=== PATIENT | male | born 1975 | race Caucasian/White ===

== ENCOUNTER 2020-10-01 15:50 | Outpatient (CLI) | payer OTHER, SELFPAY ==
--- NOTE | ~2020-10-01 | XR_ITS ---
XR chest 2V 10/01/2020 16:30 Indication: Cough and shortness of breath. Covid. Procedure: PA and lateral views of the chest Comparison: No prior studies for comparison. Findings: Subtle lower lobe airspace disease. Heart size normal. No pleural effusion or pneumothorax. No acute osseous abnormality. Impression: 1: Subtle lower lobe airspace disease which may represent atelectasis or developing pneumonia. Reviewed, dictated and finalized at location A. [employer] Impression: 1: Subtle lower lobe airspace disease which may represent atelectasis or develo ping pneumonia.
== END 2020-10-01 15:51 | disposition home or self-care (01) ==
PROVIDERS: PCP Internal Medicine; Visit Provider Physician Assistant
DX: U07.1 COVID-19 (principal); R05 Cough; R91.8 Other nonspecific abnormal finding of lung field
CPT/HCPCS: 71046

== ENCOUNTER 2021-04-03 09:59 | Outpatient (CLI) | payer OTHER, SELFPAY ==
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
== END 2021-04-03 10:00 | disposition home or self-care (01) ==
PROVIDERS: PCP Physician Assistant; Visit Provider Physician Assistant
DX: J90 Pleural effusion, not elsewhere classified (principal); S22.41XA Multiple fractures of ribs, right side, initial encounter for closed fracture
CPT/HCPCS: 71046; 71100

== ENCOUNTER → 2021-05-28 13:58 | Outpatient (CLI) | payer OTHER, SELFPAY ==
--- NOTE | ~2021-05-28 | XR_ITS ---
EXAMINATION: XR ribs RT 2V w CXR 2V INDICATION: Cough, closed fracture of multiple right ribs TECHNIQUE: PA and lateral views of the chest and 3 views of the right ribs were obtained. COMPARISON: 04/03/2021 FINDINGS: There is no pleural effusion or pneumothorax. The cardiomediastinal silhouette is normal. T he lungs are free of acute opacities. There is mild thoracic spondylosis. Calcified callus has develo ped at the sites of the previously described right eighth and ninth rib fractures. No new rib fractur e is identified. IMPRESSION: 1. Healing fractures of the right eighth and ninth ribs without acute cardiopulmonary abnormality. Reviewed, dictated and finalized at location B. IMPRESSION: 1. Healing fractures of the right eighth and ninth ribs without acute cardiopul monary abnormality.
== END ==
PROVIDERS: PCP Nurse Practitioner Family; Visit Provider Nurse Practitioner Family
DX: S22.41XD Multiple fractures of ribs, right side, subsequent encounter for fracture with routine healing (principal); R05 Cough
CPT/HCPCS: 71046; 71100

== ENCOUNTER 2021-09-30 16:57 | Emergency (ER) | payer OTHER, SELFPAY ==
--- NOTE | 2021-09-30 17:02 | ED.SKABFB ---
HPI - Skin/Abscess/Foreign Bdy General Chief complaint: Skin/Abscess/Foreign Body Stated complaint: Abscess on Calf Time Seen by Provider: 09/30/21 17:02 Source: patient and RN notes reviewed History of Present Illness HPI narrative: Patient is a 46-year-old male who presents the urgent care with complaints of a abscess to the back of the left calf. Patient states that he noticed it a few days ago and believes it started as an ingrown hair in which she attempted to pop. Patient states is been draining for the last couple days but the redness and tenderness has increased. Patient denies of any fevers. States that his main concern is starting chemotherapy next Wednesday and he cannot be on the antibiotics while on the chemotherapy. No other acute complaints. No acute distress noted. Patient aware of the plan of care. Some parts of this dictation were generated by voice recognition software and may contain typographical and/or grammatical inaccuracies. Related Data Home Medications Medication Instructions Recorded Confirmed esomeprazole magnesium 20 mg 20 mg PO BID cap 10/21/20 10/22/20 capsule,delayed release folic acid 1 mg tablet 2 mg PO DAILY tablet 10/21/20 10/22/20 hydroxychloroquine 200 mg tablet 200 mg PO DAILY 10/21/20 10/22/20 methotrexate sodium 2.5 mg tablet 10 mg PO WEEKLY tablet 10/21/20 10/22/20 Allergies Allergy/AdvReac Type Severity Reaction Status Date / Time Penicillins Allergy Unknown rash when Verified 10/21/20 09:45 baby Review of Systems Review of Systems: CONSTITUTIONAL: Denies fever, chills, or sweats. EYES: Denies visual changes, redness, or discharge. ENT: Denies rhinorrhea, congestion, sore throat, or otalgia. CARDIOVASCULAR: Denies chest pain, palpitations, or edema. RESPIRATORY: Denies cough or dyspnea. GASTROINTESTINAL: Denies abdominal pain, nausea, vomiting, or diarrhea. GENITOURINARY: Denies dysuria or hematuria. SKIN: Reports of an abscess to the left posterior calf MUSCULOSKELETAL: Denies back pain, joint pain, or myalgia. NEUROLOGIC: Denies headache, numbness, or weakness. All other systems reviewed are negative, except as documented in HPI. [facility], [facility] Past Medical History Medical History Stomach ulcer Surgical History Surgical History H/O knee surgery H/O wrist surgery Family History Family History Father Patient's father is in good health Hypertension Mother Chronic pneumonia Social History Social History Smoking status: Never smoker Alcohol intake: current Comments At the time of my signature, I reviewed and agree with the nursing past medical, surgical, social, and family history. There is no relevant family history pertinent to the patient complaint. Exam Narrative: GENERAL: This is a well-nourished, well-developed patient, in no apparent distress. HEAD: normocephalic, atraumatic. EYES: PERRL. Sclera clear/white. Vision is grossly intact. EARS: External ears normal NOSE: External nose normal with no obvious nasal discharge, nares without redness, no rhinorrhea. THROAT: Mucous membranes moist NECK: Neck supple CARDIOVASCULAR: Regular rate and rhythm without murmurs, gallops, or rubs. RESPIRATORY: Clear to auscultation. Breath sounds equal bilaterally. SKIN: 2 x 3cm erythemic abscess with 1x1cm draining center to the posterior left calf NEURO: awake, alert, and oriented to person, place and time. There were no obvious focal neurologic abnormalities. EXTREMITIES: No clubbing, cyanosis, or edema. Course Vital Signs Vital signs: Vital Signs Temperature 98.2 F 09/30/21 17:03 Pulse Rate 66 09/30/21 17:03 Respiratory Rate 20 09/30/21 17:03 Blood Pressure 145/96 H 09/30/21 17:03 Pulse Oximetry 100 09/30/21 17:03 Tem
[2021-09-30 17:03] VITALS: BP 145/96; PULSE 66; RESP 20; TEMP 36.8; O2SAT 100
== END 2021-09-30 17:22 | disposition home or self-care (01) ==
PROVIDERS: Emergency Provider Nurse Practitioner Family
DX: L02.416 Cutaneous abscess of left lower limb (principal)
CPT/HCPCS: 99213; G0463

== ENCOUNTER 2022-11-02 12:54 | Emergency (ER) | payer OTHER, SELFPAY ==
[2022-11-02 13:06] VITALS: BP 139/94; PULSE 81; RESP 16; TEMP 36.6; O2SAT 98
--- NOTE | 2022-11-02 13:14 | ED.GENADULT ---
HPI - General Adult General Chief complaint: Upper Respiratory Infection Stated complaint: ear pain/drainage,congestion,cough,sore throat Time Seen by Provider: 11/02/22 12:57 Source: patient Mode of arrival: ambulatory Limitations: no limitations History of Present Illness HPI narrative: Patient presents for evaluation of bilateral ear pain with symptom onset 3 days ago. Reports muffled hearing and some tinnitus. He had a fever yesterday. He took Tylenol and Sudafed for symptoms. He has a history of colon cancer, status post chemotherapy and surgical excision of tumor. He has repeat imaging studies scheduled for the near future. He reports sore throat, green nasal drainage and productive cough of green sputum. He does not smoke. He had COVID in 2020. No additional complaints or concerns. Related Data Home Medications Medication Instructions Recorded Confirmed esomeprazole magnesium 20 mg 20 mg PO BID 10/21/20 11/02/22 capsule,delayed release (Nexium) hydroxychloroquine 200 mg tablet 200 mg PO DAILY 10/21/20 11/02/22 lisinopril 20 mg tablet 20 mg PO DAILY 11/02/22 11/02/22 Allergies Allergy/AdvReac Type Severity Reaction Status Date / Time Penicillins Allergy Unknown rash when Verified 11/02/22 13:02 baby Review of Systems Review of Systems: CONSTITUTIONAL: Reports fever. Denies chills, or sweats. EYES: Denies visual changes, redness, or discharge. ENT: Reports sinus congestion, green nasal drainage, sore throat, bilateral otalgia, tinnitus, muffled hearing CARDIOVASCULAR: Denies chest pain, palpitations, or edema. RESPIRATORY: Reports productive cough of green sputum. Denies dyspnea. GASTROINTESTINAL: Denies abdominal pain, nausea, vomiting, or diarrhea. GENITOURINARY: Denies dysuria or hematuria. SKIN: Denies rash or itching. MUSCULOSKELETAL: Denies back pain, joint pain, or myalgia. NEUROLOGIC: Denies headache, numbness, dizziness, or weakness. PSYCHIATRIC: Denies anxiety or depression. [facility] Past Medical History Medical History Colon cancer Lupus Stomach ulcer Surgical History Surgical History H/O knee surgery H/O wrist surgery Family History Family History Father Patient's father is in good health Hypertension Mother Chronic pneumonia Social History Social History Smoking status: Never smoker Alcohol intake: current Substance use: never Gender identity (if verbalized by the patient): Male Sexual Orientation (if Verbalized by the Patient): Straight or Heterosexual Spiritual care concerns: No Exam Narrative: GENERAL: Well-appearing, well-nourished, and in no acute distress. HEAD: Normocephalic, atraumatic. EYES: PERRLA and EOMI. ENT: Nares clear, no rhinorrhea or epistaxis. Mucous membranes moist. Oropharynx without tonsillar hypertrophy exudate or other lesions. Bilateral TMs erythematous with some bulging and yellow exudate behind TM's NECK: Supple. No adenopathy or masses. No carotid bruits or JVD CHEST: Clear to auscultation. No respiratory distress. No wheezes rales or rhonchi HEART: Regular rate and rhythm. No murmur heard. Normal peripheral pulses. ABDOMEN: Soft, nontender, nondistended, normal active bowel sounds. EXTREMITIES: Normal range of motion. No edema. SKIN: Warm, dry, no rash. NEURO: No focal deficits. Alert and oriented x3. PSYCH: Normal mood and affect. Course Course Emergency Course: This is a 47-year-old male who presented for evaluation of sick symptoms. He has evidence of otitis media on exam. Will treat with cefdinir due to penicillin allergy. Follow up with primary provider outpatient. Go to the ER for worsening symptoms. Patient in agreement with plan of care Level of Care: [facility]
== END 2022-11-02 13:15 | disposition home or self-care (01) ==
PROVIDERS: Emergency Provider Nurse Practitioner; PCP Internal Medicine
DX: H66.93 Otitis media, unspecified, bilateral (principal); Z85.038 Personal history of other malignant neoplasm of large intestine
CPT/HCPCS: 99213; G0463